=== PATIENT | male | born 1995 | race Caucasian/White ===

== ENCOUNTER 2018-04-08 13:17 | Emergency (ER) | payer OTHER ==
--- NOTE | 2018-04-08 13:31 | EDM.PDOC ---
ED HPI GENERAL MEDICAL PROBLEM - General Chief Complaint: Head Injury Stated Complaint: HEAD INJURY Time Seen by Provider: 04/08/18 13:25 - History of Present Illness INITIAL COMMENTS - FREE TEXT/NARRATIVE: HISTORY AND PHYSICAL: History of present illness: Patient's 22-year-old male who presents with a concern of minor head injury with superficial scalp laceration this occurred at work he denies loss consciousness he denies any neck pain or trauma or any other concern tenderness status is to be determined Review of systems: As per history of present illness and below otherwise all systems reviewed and negative. Past medical history: As per history of present illness and as reviewed below otherwise noncontributory. Surgical history: As per history of present illness and as reviewed below otherwise noncontributory. Social history: No reported history of drug or alcohol abuse. Family history: As per history of present illness and as reviewed below otherwise noncontributory. Physical exam: HEENT: Patient has approximate 1.5 cm superficial laceration to the scalp was good hemostasis no step-off no depression dictation no foreign body, normocephalic, pupils reactive, negative for conjunctival pallor or scleral icterus, mucous membranes moist, throat clear, neck supple, nontender, trachea midline. Lungs: Clear to auscultation, breath sounds equal bilaterally, chest nontender. Heart: S1S2, regular, negative for clicks, rubs, or JVD. Abdomen: Soft, nondistended, nontender. Negative for masses or hepatosplenomegaly. Negative for costovertebral tenderness. Pelvis: Stable nontender. Genitourinary: Deferred. Rectal: Deferred. Extremities: Atraumatic, negative for cords or calf pain. Neurovascular unremarkable. Neuro: Awake, alert, oriented. Cranial nerves II through XII unremarkable. Cerebellum unremarkable. Motor and sensory unremarkable throughout. Exam nonfocal. Diagnostics: None Therapeutics: Tenderness as indicated wound was irrigated and dressed with bacitracin Impression: 1 minor head injury with scalp laceration Definitive disposition and diagnosis as appropriate pending reevaluation and review of above. heada Pain Score (Numeric/FACES): 3 - Related Data Allergies Allergy/AdvReac Type Severity Reaction Status Date / Time No Known Allergies Allergy Verified 04/08/18 13:25 Home Meds: Home Meds . [No Known Home Meds] 04/08/18 [History] Past Medical History - Past Health History Medical/Surgical History: Denies Medical/Surgical History Social & Family History - Family History Family Medical History: Noncontributory - Tobacco Use Smoking Status *Q: Current Some Day Smoker Years of Tobacco use: 1 Packs/Tins Daily: 0.1 - Caffeine Use Caffeine Use: Reports: Coffee, Energy Drinks, Soda, Tea - Recreational Drug Use Recreational Drug Use: No ED ROS GENERAL - Review of Systems Review Of Systems: ROS reveals no pertinent complaints other than HPI. ED EXAM, HEAD INJURY - Physical Exam Exam: See Below (See dictation) Course - Vital Signs Last Recorded V/S: Last Vital Signs Temp 36.5 C 04/08/18 13:26 Pulse 57 L 04/08/18 13:26 Resp 18 04/08/18 13:26 BP 168/99 H 04/08/18 13:26 Pulse Ox 97 04/08/18 13:26 Departure - Departure Time of Disposition: 13:30 Disposition: Home, Self-Care 01 Condition: Good Clinical Impression: Head injury - Discharge Information Referrals: PCP,None [Primary Care Provider] - Additional Instructions: The following information is given to patients seen in the emergency department who are being discharged to home. This information is to outline your options for follow-up care. We provide all patients seen in our emergency department with a follow-up referral. The need for follow-up, as well as the timing and circumstances, are variable depending upon the specifics of your emergency department visit. If you don't have a primary care physician on staff, we will provide you with a referral. We always advise you to contact your personal physician following an emergency department visit to inform them of the circumstance of the visit and for follow-up with them and/or the need for any referrals to a consulting specialist. The emergency department will also refer you to a specialist when appropriate. This referral assures that you have the opportunity for followup care with a specialist. All of these measure are taken in an effort to provide you with optimal care, which includes your followup. Under all circumstances we always encourage you to contact your private physician who remains a resource for coordinating your care. When calling for followup care, please make the office aware that this follow-up is from your recent emergency room visit. If for any reason you are refused follow-up, please contact the [facility] emergency department at and asked to speak to the emergency department charge nurse. Follow-up [employer]. primary medical doctor as needed as discussed bacitracin as directed to wound return as needed as discussed
[2018-04-08] MEDS ORDERED: Bacitracin Oint 1 GM U/D Packet TOP ONE (13:35)
== END 2018-04-08 14:10 | disposition home or self-care (01) ==
LOC: MW.ED 13:17
DX: S01.01XA Laceration without foreign body of scalp, initial encounter (principal); S09.90XA Unspecified injury of head, initial encounter; F17.210 Nicotine dependence, cigarettes, uncomplicated; W22.8XXA Striking against or struck by other objects, initial encounter; Y99.0 Civilian activity done for income or pay
CPT/HCPCS: 99283